=== PATIENT | male | born 1950 | race Caucasian/White ===

== ENCOUNTER 2017-08-27 06:49 | Day surgery (SDC) | payer MEDICARE ==
[~2017-08-27] VITALS: Ht 170.2 cm; Wt 89.5 kg
[~2017-08-27 06:49] MED LIST: CALCITRIOL PO; CEPHALEXIN500 M1 PO; COREG 25MG25 MG/TAB PO; DEXILANT60 MG PO; DIOVAN 40MG40 MG PO; LASIX 40MG TABL40 MG PO; RENVELA800 MG PO; TUMS EXTRA STR750 MG PO; VITAMIN D 400400 IU PO; ZOCOR 40MG40 MG PO; ZYLOPRIM 100MG100 MG PO
[2017-08-27 07:43] LABS: MEAN CELL VOLUME 95 fl (80.0-100.0); MEAN CORPUSCULAR HGB CONC 32 g/dl (33.0-37.0); MEAN PLATELET VOLUME 10.1 fl (7.4-10.4); PLATELET COUNT 121 K/mm3 (130-400); RED BLOOD COUNT 3.62 M/mm3 (4.20-5.60); REDCELL DISTRIBUTION WIDTH-CV 14.5 % (11.5-14.5)
[2017-08-27 07:44] VITALS: BP 126/83; PULSE 116; TEMP 97.5
[2017-08-27 07:45] LABS: HEMATOCRIT 34.3 % (42.0-52.0); HEMOGLOBIN 10.9 g/dl (13.5-18.0); MEAN CORPUSCULAR HEMOGLOBIN 30 pg (27.0-31.0)
[2017-08-27 07:49] LABS: PROTHROMBIN TIME 11.9 SECONDS (9.7-12.8)
[2017-08-27 07:52] LABS: CALCIUM 9.2 mg/dL (8.4-10.2); CREATININE, serum 2.85 mg/dL (0.66-1.25); POTASSIUM 4.5 mmol/L (3.4-5.0)
[2017-08-27] MEDS ORDERED: ELIQUIS 2.5 PO (08:12)
[2017-08-27] MEDS ORDERED: ZYLOPRIM 100MG100 MG PO (08:14)
[2017-08-27] MEDS ORDERED: NORVASC 5MG5 MG/TAB PO (08:15)
[2017-08-27] MEDS ORDERED: LASIX 40MG TABL40 MG PO (08:17)
[2017-08-27] MEDS ORDERED: ELIQUIS 5MG PO (08:31)
[2017-08-27 10:00] VITALS: BP 120/61; PULSE 81; TEMP 98
== END 2017-08-27 10:50 | disposition home or self-care (01) ==
LOC: COL.CAR 06:49
PROVIDERS: Internal Medicine Cardiovascular Disease
DX: I48.91 Unspecified atrial fibrillation (principal); I42.9 Cardiomyopathy, unspecified; I12.0 Hypertensive chronic kidney disease with stage 5 chronic kidney disease or end stage renal disease; N18.6 End stage renal disease; I15.0 Renovascular hypertension; E78.00 Pure hypercholesterolemia, unspecified; I25.10 Atherosclerotic heart disease of native coronary artery without angina pectoris; I08.0 Rheumatic disorders of both mitral and aortic valves; K21.9 Gastro-esophageal reflux disease without esophagitis; Z82.49 Family history of ischemic heart disease and other diseases of the circulatory system
CPT/HCPCS: J0330; J2704

== ENCOUNTER 2017-11-30 17:10 | Inpatient (IN) | payer MEDICARE ==
[~2017-11-30] VITALS: Ht 167.6 cm; Wt 79.1 kg
[~2017-11-30 17:10] MED LIST changes: +ELIQUIS 2.5 PO; +ELIQUIS 5MG PO; +NORVASC 5MG5 MG/TAB PO
[2017-11-30 18:25] VITALS: BP 120/66; PULSE 88; TEMP 98.2
[2017-11-30] MEDS ORDERED: ELIQUIS 5MG PO ×2 (18:47→18:48)
[2017-11-30] MEDS ORDERED: EPA FISH OIL1 SGL PO (18:50)
[2017-11-30 19:23] VITALS: BP 116/60; PULSE 85; TEMP 98.3
[2017-11-30 20:01] LABS: PARTIAL THROMBOPLASTIN TIME 41.3 SECONDS (26.0-37.0)
[2017-11-30] MEDS ORDERED: TUMS500 MG (22:06)
[2017-11-30 23:06] VITALS: BP 117/52; PULSE 82; TEMP 98.2
[2017-12-01 04:54] VITALS: BP 121/59; PULSE 76; TEMP 98.1
[2017-12-01 06:50] LABS: BASO % 0.3 % (0.0-2.0); EOS # 0.1 (0.0-0.7); EOS % 0.9 % (0-4.0); GRAN # 5.1 (1.4-6.5); GRAN % 79.7 % (42.2-75.2); LYMPH # 0.5 (1.2-3.4); LYMPH % 7.6 % (20.0-51.0); MEAN CELL VOLUME 94 fl (80.0-100.0); MEAN CORPUSCULAR HGB CONC 32 g/dl (33.0-37.0); MEAN PLATELET VOLUME 11.1 fl (7.4-10.4); MONO # 0.7 (0.1-0.6); MONO % 11.2 % (1.7-9.3); PLATELET COUNT 107 K/mm3 (130-400); RED BLOOD COUNT 3.25 M/mm3 (4.20-5.60); REDCELL DISTRIBUTION WIDTH-CV 13.9 % (11.5-14.5)
[2017-12-01 07:00] LABS: CALCIUM 9.1 mg/dL (8.4-10.2); CREATININE, serum 2.83 mg/dL (0.66-1.25); POTASSIUM 4.3 mmol/L (3.4-5.0)
[2017-12-01 07:03] LABS: HEMATOCRIT 30.6 % (42.0-52.0); HEMOGLOBIN 9.7 g/dl (13.5-18.0); MEAN CORPUSCULAR HEMOGLOBIN 30 pg (27.0-31.0)
[2017-12-01 07:04] VITALS: BP 135/55; PULSE 83; TEMP 98.2
[2017-12-01 11:44] VITALS: BP 130/79; PULSE 93; TEMP 98.4
[2017-12-01 15:18] VITALS: BP 125/61; PULSE 86; TEMP 98.4
[2017-12-01 15:54] LABS: ARTERIAL BLD GAS O2 SATURATION 92.9 % (92-100); ARTERIAL BLD GAS TCO2 CT 21.6; ARTERIAL BLOOD GAS BASE EXCESS -4.2 (-2-2); ARTERIAL BLOOD GAS HCO3 20.5 meq/L (22-26); ARTERIAL BLOOD GAS PCO2 36.1 mmHg (35-45); ARTERIAL BLOOD GAS PO2 70.1 mmHg (80-100); ARTERIAL BLOOD GAS pH 7.37 (7.35-7.45)
[2017-12-01 19:14] VITALS: BP 128/68; PULSE 82; TEMP 98.4
[2017-12-01 23:01] VITALS: BP 124/67; PULSE 82; TEMP 98.3
[2017-12-02] VITALS (9 sets, daily range): BP systolic 115–130; BP diastolic 50–63; PULSE 78–84; TEMP 98.1–99.7
[2017-12-02 06:40] LABS: BASO % 0.4 % (0.0-2.0); EOS # 0.2 (0.0-0.7); EOS % 2.3 % (0-4.0); GRAN # 5.8 (1.4-6.5); GRAN % 80.2 % (42.2-75.2); LYMPH # 0.5 (1.2-3.4); LYMPH % 6.4 % (20.0-51.0); MEAN CELL VOLUME 96 fl (80.0-100.0); MEAN CORPUSCULAR HGB CONC 31 g/dl (33.0-37.0); MEAN PLATELET VOLUME 10.9 fl (7.4-10.4); MONO # 0.7 (0.1-0.6); PLATELET COUNT 126 K/mm3 (130-400); RED BLOOD COUNT 3.17 M/mm3 (4.20-5.60); REDCELL DISTRIBUTION WIDTH-CV 14.1 % (11.5-14.5)
[2017-12-02 06:41] LABS: HEMATOCRIT 30.3 % (42.0-52.0); HEMOGLOBIN 9.5 g/dl (13.5-18.0); MEAN CORPUSCULAR HEMOGLOBIN 30 pg (27.0-31.0)
[2017-12-02 06:56] LABS: CREATININE, serum 2.54 mg/dL (0.66-1.25); POTASSIUM 4.1 mmol/L (3.4-5.0)
[2017-12-03] VITALS (11 sets, daily range): BP systolic 114–150; BP diastolic 53–72; PULSE 74–96; TEMP 98.5–99.8
[2017-12-03 06:52] LABS: CALCIUM 9.4 mg/dL (8.4-10.2); CREATININE, serum 2.44 mg/dL (0.66-1.25); POTASSIUM 3.7 mmol/L (3.4-5.0)
[2017-12-04 01:13] VITALS: BP 126/64; PULSE 77; TEMP 98.5
[2017-12-04 04:36] VITALS: BP 134/55; PULSE 73; TEMP 98.5
[2017-12-04 06:56] LABS: BASO % 0.4 % (0.0-2.0); EOS # 0.4 (0.0-0.7); EOS % 5.3 % (0-4.0); GRAN # 4.9 (1.4-6.5); GRAN % 73.1 % (42.2-75.2); LYMPH # 0.6 (1.2-3.4); LYMPH % 9.5 % (20.0-51.0); MEAN CELL VOLUME 94 fl (80.0-100.0); MEAN CORPUSCULAR HGB CONC 31 g/dl (33.0-37.0); MEAN PLATELET VOLUME 9.8 fl (7.4-10.4); MONO # 0.8 (0.1-0.6); MONO % 11.3 % (1.7-9.3); PLATELET COUNT 147 K/mm3 (130-400); RED BLOOD COUNT 3.32 M/mm3 (4.20-5.60); REDCELL DISTRIBUTION WIDTH-CV 13.8 % (11.5-14.5)
[2017-12-04 07:01] LABS: HEMATOCRIT 31.2 % (42.0-52.0); HEMOGLOBIN 9.8 g/dl (13.5-18.0); MEAN CORPUSCULAR HEMOGLOBIN 30 pg (27.0-31.0)
[2017-12-04 07:02] LABS: CALCIUM 9.3 mg/dL (8.4-10.2); CREATININE, serum 2.37 mg/dL (0.66-1.25); POTASSIUM 3.6 mmol/L (3.4-5.0)
[2017-12-04 08:11] VITALS: BP 116/48; PULSE 75; TEMP 97.8
[2017-12-04 13:14] VITALS: BP 115/51; PULSE 72; TEMP 97.7
[2017-12-04 16:07] VITALS: BP 113/53; PULSE 71; TEMP 98.7
[2017-12-04 20:40] VITALS: BP 123/56; PULSE 73; TEMP 99.2
[2017-12-05] VITALS (7 sets, daily range): BP systolic 90–132; BP diastolic 47–56; PULSE 69–82; TEMP 98.4–99.7
[2017-12-06 01:53] VITALS: BP 120/54; PULSE 78; TEMP 99.2
[2017-12-06 04:00] VITALS: TEMP 98.8
[2017-12-06 07:21] VITALS: BP 119/49; PULSE 71; TEMP 98.6
[2017-12-06] MEDS ORDERED: VENTOLIN0.09 MG IH (09:50)
== END 2017-12-06 13:06 | disposition home or self-care (01) | DRG 291 ==
LOC: MEDICAL 17:10
PROVIDERS: Nurse Practitioner; Physician Assistant
DX: I13.0 Hypertensive heart and chronic kidney disease with heart failure and stage 1 through stage 4 chronic kidney disease, or unspecified chronic kidney disease (principal); I50.23 Acute on chronic systolic (congestive) heart failure; J96.01 Acute respiratory failure with hypoxia; N18.9 Chronic kidney disease, unspecified; I48.91 Unspecified atrial fibrillation; Z95.0 Presence of cardiac pacemaker; Z79.01 Long term (current) use of anticoagulants; F79 Unspecified intellectual disabilities; Z95.5 Presence of coronary angioplasty implant and graft; I42.0 Dilated cardiomyopathy; I08.3 Combined rheumatic disorders of mitral, aortic and tricuspid valves; D63.1 Anemia in chronic kidney disease
CPT/HCPCS: 99222-AI; 99231-AI; 99232-AI; 99239; A9502; A9539; A9540; J1940; J2785; J7030

== ENCOUNTER 2018-07-15 14:20 | Inpatient (IN) | payer MEDICARE ==
[~2018-07-15] VITALS: Ht 170.2 cm; Wt 79.3 kg
[~2018-07-15 14:20] MED LIST changes: +EPA FISH OIL1 SGL PO; +TUMS500 MG; +VENTOLIN0.09 MG IH
[2018-07-15 14:56] LABS: BASO % 0.4 % (0.0-2.0); EOS # 0.2 (0.0-0.7); EOS % 3.9 % (0-4.0); GRAN # 3.6 (1.4-6.5); GRAN % 73.4 % (42.2-75.2); HEMATOCRIT 33.7 % (42.0-52.0); HEMOGLOBIN 10.3 g/dl (13.5-18.0); LYMPH # 0.5 (1.2-3.4); LYMPH % 10.1 % (20.0-51.0); MEAN CELL VOLUME 94 fl (80.0-100.0); MEAN CORPUSCULAR HEMOGLOBIN 29 pg (27.0-31.0); MEAN CORPUSCULAR HGB CONC 31 g/dl (33.0-37.0); MEAN PLATELET VOLUME 12.2 fl (7.4-10.4); MONO # 0.6 (0.1-0.6); PLATELET COUNT 83 K/mm3 (130-400); RED BLOOD COUNT 3.58 M/mm3 (4.20-5.60); REDCELL DISTRIBUTION WIDTH-CV 15.6 % (11.5-14.5)
[2018-07-15 15:04] LABS: INR 3.2 (0.8-3.0); PROTHROMBIN TIME 36.3 SECONDS (9.7-12.8)
[2018-07-15] MEDS ORDERED: ZOCOR 40MG40 MG PO (15:04)
[2018-07-15] MEDS ORDERED: LIPITOR20 MG PO (15:06)
[2018-07-15 15:07] LABS: PARTIAL THROMBOPLASTIN TIME 49.8 SECONDS (26.0-37.0)
[2018-07-15] MEDS ORDERED: PACERONE400 MG PO (15:07)
[2018-07-15] MEDS ORDERED: ZAROXOLYN5 MG PO (15:07)
[2018-07-15 15:15] LABS: ALBUMIN 3.7 gm/dL (3.5-5.0); BILIRUBIN,TOTAL 0.8 mg/dL (0.0-1.0); CALCIUM 9.9 mg/dL (8.4-10.2); POTASSIUM 3.7 mmol/L (3.4-5.0); TOTAL PROTEIN 6.2 gm/dL (6.4-8.2)
[2018-07-15 15:21] LABS: CREATININE, serum 4.8 mg/dL (0.66-1.25)
[2018-07-15 15:29] LABS: TROPONIN-I 0.04 ng/mL (0.000-0.035)
--- NOTE | 2018-07-15 20:00 | NUR ---
PT ADMITTED TO MEDICAL FLOOR. PT A&O X4. STATED HE HAS SOME STIFFNESS TO BACK BUT NO OTHER COMPLAINTS VOICED. BUMEX GTT RUNNING AT 10ML/HR WITHOUT ISSUE
[2018-07-15 21:19] VITALS: BP 76/43; PULSE 72; TEMP 91.7
--- NOTE | 2018-07-15 21:20 | NUR ---
THIS NURSE AND VENDING TECHNICIAN OBTAINED VITALS ON PT. B/P AT THIS TIME WAS 76/43 MANUALLY. TEMP WASNT ABLE TO BE OBTIANED WITH TYPICAL THERMOMETERS AND WITH THE DISPOABLE THERMOMETERS IT WAS 91.7.
--- NOTE | 2018-07-15 22:00 | NUR ---
THIS NURSE RETOOK VITALS AND B/P WAS UP TO 95/48, STILL UNABLE TO GET REGULAR THERMOMETERS TO WORK, TEMP WAS 92.1 AT THIS TIME. THIS NURSE CALLED LEESA MORSE DUE TO TEMP. INFORMED THIS NURSE TO TAKE TEMP RECTALLY.
[2018-07-15 22:01] VITALS: BP 95/48; TEMP 92.1
[2018-07-15 22:30] VITALS: TEMP 93.7
--- NOTE | 2018-07-15 22:30 | NUR ---
OBTAINED RECTAL TEMP OF 93.7. THIS NURSE HAD JAVIER RODRIGUEZ RETAKE RECTAL TEMP JUST TO SEE ENSURE TEMP WAS ACCURATE. SHE GOT 93.6 RECTALLY. NOTIFIED LEESA OF TEMP. HAD THIS NURSE WRAP PT IN WARM BLANKET AND KEEP MONITORING TEMP.
[2018-07-15 22:50] VITALS: TEMP 93.6
[2018-07-15 23:21] VITALS: BP 85/44; PULSE 106
[2018-07-16] VITALS (17 sets, daily range): BP systolic 82–93; BP diastolic 41–60; PULSE 74–116; TEMP 92.5–97.9
--- NOTE | 2018-07-16 03:20 | NUR ---
APPLIED FORCED AIR HEATING BLANKET TO PATIENT. WELL CONTINUE TO MONITOR PT
--- NOTE | 2018-07-16 04:58 | NUR ---
PT TEMP IS 94.9 WITH THE BEARHUGGER STILL ON AND ON LOW. B/P AT THIS TIME WAS 88/46.
--- NOTE | 2018-07-16 05:07 | NUR ---
NOTIFIED LEESA MORSE OF / WHILE ON BUMEX DRIP, LEESA SAID TO RECHECK B/P IN AN HOUR. NOTIFIED OF TEMP OF 94.9, THIS NURSE WAS INSTRUCTED TO TURN UP THE BIARHUGGER TO HIGH AND RECHECK TEMP IN AN HOUR WELL
--- NOTE | 2018-07-16 06:45 | NUR ---
PT HAD IV TO BILAT HANDS THIS AM, ONE WAS BLEEDING FROM DRESSING. IV HAD GONE BAD AND WAS REMOVED FROM HAND. HAD BLEEDING NOTED SO WRAPPED WITH COBAN AND ALLIED PRESSURE.
[2018-07-16 08:42] LABS: BASO % 0.3 % (0.0-2.0); EOS # 0.1 (0.0-0.7); EOS % 2.7 % (0-4.0); GRAN # 2.9 (1.4-6.5); GRAN % 77.2 % (42.2-75.2); LYMPH # 0.4 (1.2-3.4); LYMPH % 10.2 % (20.0-51.0); MEAN CELL VOLUME 92 fl (80.0-100.0); MEAN CORPUSCULAR HGB CONC 31 g/dl (33.0-37.0); MEAN PLATELET VOLUME 12.2 fl (7.4-10.4); MONO # 0.3 (0.1-0.6); MONO % 9.1 % (1.7-9.3); PLATELET COUNT 75 K/mm3 (130-400); RED BLOOD COUNT 3.42 M/mm3 (4.20-5.60); REDCELL DISTRIBUTION WIDTH-CV 15.5 % (11.5-14.5)
[2018-07-16 08:52] LABS: HEMATOCRIT 31.6 % (42.0-52.0); HEMOGLOBIN 9.7 g/dl (13.5-18.0); MEAN CORPUSCULAR HEMOGLOBIN 28 pg (27.0-31.0)
[2018-07-16 09:07] LABS: CALCIUM 9.9 mg/dL (8.4-10.2); MAGNESIUM 2.6 mg/dL (1.6-2.3); POTASSIUM 3.5 mmol/L (3.4-5.0)
--- NOTE | 2018-07-16 09:30 | NUR ---
SHIFT ASSESSMENT COMPLETED. PATIENT SITTING IN CHAIR UPON ENTRY AND REQUESTED BREAKFAST. PATIENT C/O PAIN IN MIDDLE OF ABDOMEN. DENIES SOB, PALPITATIONS, DIZZINESS, N/V, NUMBNESS OR TINGLING. RECTAL TEMPS ARE BEING TAKEN EVERY HOUR, TEMPS ARE INCREASING. DENIES BEING COLD BUT HAS CHILLS. BLE EDEMA +3, MINOR SCRATCHES ON RIGHT MAJANO, PATIENT STATES HE SCRATCHES LEG. LEFT AC BRUISING. IRREGULAR HEART RHYTHM. BUMEX GTT AND NS @ 30 MLS/HR IN RIGHT HAND. FISTULA PRESENT IN RIGHT THIGH, BRUIT AND THRILL PRESENT. PATIENT DENIES ANY OTHER NEEDS AT THIS TIME.
[2018-07-16 09:32] LABS: CREATININE, serum 4.78 mg/dL (0.66-1.25)
--- NOTE | 2018-07-16 10:17 | NUR ---
First visit from the volunteer services manager. No needs right now.
--- NOTE | 2018-07-16 10:32 | NUR ---
SW attended clinical rounds to discuss discharge planning. Patient lives at home with his sister. Patient's PCP is Dr Megan Velazco and he obtains prescriptions, without difficulty, from [facility] pharmacy. Patient does not use any home health services or DME at home. PT/OT will be consulted. Patient reports he does have a DPOA and those records are at home. SW will continue to follow and assist with discharge needs.
[2018-07-16 10:57] LABS: MUCOUS Present /lpf; PH 5 (5-8); SQUAMOUS EPITHELIAL 0-2 /hpf; URINE APPEARANCE Clear; URINE BACTERIA Rare /hpf; URINE BILIRUBIN Negative (NEGATIVE); URINE BLOOD 1+ (NEGATIVE); URINE COLOR Straw; URINE GLUCOSE Negative (NEGATIVE); URINE KETONE Negative (NEGATIVE); URINE LEUKOCYTE ESTERASE Negative (NEGATIVE); URINE NITRATE Negative (NEGATIVE); URINE PROTEIN(semi-quant) Negative (NEGATIVE); URINE RBC 0-2 /hpf; URINE UROBILINOGEN Negative (NEGATIVE)
--- NOTE | 2018-07-16 11:15 | NUR ---
patient down for CT.
--- NOTE | 2018-07-16 12:36 | NUR ---
patient back from CT, sitting in chair with blankets and bearhugger. Rectal temp taken, 97.0.
[2018-07-16 12:43] LABS: COLLECTION METHOD CLEAN CATCH
--- NOTE | 2018-07-16 15:08 | NUR ---
patient resting in chair, westley hugger has been removed. Past two temps have increased from earlier. 72 F and 72.7 F. patient denies needs at this time.
--- NOTE | 2018-07-16 17:53 | NUR ---
Patient is resting in chair, watching tv. Patients temps have increased throughout the day, last recorded temp 96.9 F, rectally. Blood pressures have been in 80s-90s. Micahel hugger was removed mid day due to increased temps. Patient worked with PT and walked down santizo, stated feeling fatigued after. Patient on 2L NC. Patient has done well throughout day with no complaints.
[2018-07-17] VITALS (10 sets, daily range): BP systolic 85–98; BP diastolic 46–67; PULSE 62–101; TEMP 97.6–98.4
--- NOTE | 2018-07-17 05:02 | NUR ---
PT HAD UNEVENTFUL NOC. VITALS REMAINED WNL OVER NOC. PT AWOKE APPROX 0400 WITH A BLOODY NOSE BRIEFLY, THIS NURSE APPLIED HUMIDIFIER ON 02 TUBING, PT WAS OFF O2 FOR A BRIEF TIME AND HAD DESATTED TO 87% REAPPLIED O2, WILL RECHECK SAT. BUMEX GTT INFUSING WITHOUT ISSUE. NO C/O PAIN OVER NOC. HAS REMAINED PLEASENT AND COOPERATIVE WITH CARES.
[2018-07-17 09:59] LABS: BASO % 0.4 % (0.0-2.0); EOS # 0.2 (0.0-0.7); EOS % 4.7 % (0-4.0); GRAN # 3.1 (1.4-6.5); HEMOGLOBIN 10.1 g/dl (13.5-18.0); LYMPH # 0.6 (1.2-3.4); LYMPH % 12.6 % (20.0-51.0); MEAN CELL VOLUME 93 fl (80.0-100.0); MEAN CORPUSCULAR HEMOGLOBIN 29 pg (27.0-31.0); MEAN CORPUSCULAR HGB CONC 31 g/dl (33.0-37.0); MEAN PLATELET VOLUME 12.7 fl (7.4-10.4); MONO # 0.6 (0.1-0.6); MONO % 12.6 % (1.7-9.3); PLATELET COUNT 85 K/mm3 (130-400); RED BLOOD COUNT 3.51 M/mm3 (4.20-5.60); REDCELL DISTRIBUTION WIDTH-CV 15.6 % (11.5-14.5)
[2018-07-17 10:03] LABS: ALBUMIN 3.7 gm/dL (3.5-5.0); BILIRUBIN,TOTAL 0.8 mg/dL (0.0-1.0); CALCIUM 10.1 mg/dL (8.4-10.2); POTASSIUM 3.2 mmol/L (3.4-5.0); TOTAL PROTEIN 6.2 gm/dL (6.4-8.2)
[2018-07-17 10:04] LABS: HEMATOCRIT 32.6 % (42.0-52.0)
[2018-07-17 10:08] LABS: INR 2.3 (0.8-3.0); PROTHROMBIN TIME 25.6 SECONDS (9.7-12.8)
[2018-07-17 10:38] LABS: CREATININE, serum 5.01 mg/dL (0.66-1.25)
--- NOTE | 2018-07-17 11:23 | NUR ---
Assessment completed, alert/oriented, vital signs stable, denies pain, reports breathing is easier today, lungs CTA/ dimnished, 3+ edema to BLE and patient reports this is baseline for him, Creat. up slightly from yesterday/ nephrology aware and making medication adjustments, heart RRR/ paced on tele with underlying A.fib, Bumex gtt continues at 5ml/hr, good urine ouput, he is sitting up in the chair and denies at this time
--- NOTE | 2018-07-17 21:47 | NUR ---
Pt sitting in recliner watching TV, no C/O pain at this time. Shift assessments complete, left Pt call light in reach.
[2018-07-18 04:24] VITALS: BP 77/45; PULSE 90; TEMP 97.3
--- NOTE | 2018-07-18 05:42 | NUR ---
Pt slept well during the night, no C/O pain, VS have remained stable.
[2018-07-18 07:15] VITALS: BP 101/61; PULSE 57; TEMP 98.1
--- NOTE | 2018-07-18 08:44 | NUR ---
Assessment completed, alert/oriented, vital signs are stable / he did have a significantly lower BP around 0430 that the night nurse did not recheck or report to the physician / as soon I noticed it I had the AEROPLANE PILOT recheck and notified hospitalist, patient denies any pain or discomfort, he continues to have good urine output, heart RRR/ 2-3+ edema still noted in the BLE, lungs CTA/ diminished, morning Labs pending, he is up in chair eating breakfast and denies needs
[2018-07-18 09:14] LABS: BASO % 0.5 % (0.0-2.0); EOS # 0.3 (0.0-0.7); EOS % 5.7 % (0-4.0); GRAN % 68.4 % (42.2-75.2); LYMPH # 0.5 (1.2-3.4); MEAN CELL VOLUME 92 fl (80.0-100.0); MEAN CORPUSCULAR HGB CONC 30 g/dl (33.0-37.0); MEAN PLATELET VOLUME 11.2 fl (7.4-10.4); MONO # 0.6 (0.1-0.6); MONO % 13.2 % (1.7-9.3); PLATELET COUNT 72 K/mm3 (130-400); RED BLOOD COUNT 3.42 M/mm3 (4.20-5.60); REDCELL DISTRIBUTION WIDTH-CV 15.4 % (11.5-14.5)
[2018-07-18 09:21] LABS: HEMATOCRIT 31.6 % (42.0-52.0); HEMOGLOBIN 9.6 g/dl (13.5-18.0); MEAN CORPUSCULAR HEMOGLOBIN 28 pg (27.0-31.0)
[2018-07-18 09:27] LABS: CALCIUM 9.8 mg/dL (8.4-10.2); POTASSIUM 3.3 mmol/L (3.4-5.0)
[2018-07-18 09:55] LABS: CREATININE, serum 4.73 mg/dL (0.66-1.25)
[2018-07-18 11:20] VITALS: BP 86/48; PULSE 69; TEMP 97.5
[2018-07-18 17:00] VITALS: BP 90/43; BP 90/48; PULSE 92; TEMP 97.9
--- NOTE | 2018-07-18 17:26 | NUR ---
I have again discussed with and the patients marginal Blood pressures, his MAP has been 60-65 and this is stable for now
[2018-07-18 20:52] VITALS: BP 90/46; PULSE 113; TEMP 97.7
--- NOTE | 2018-07-18 22:09 | NUR ---
Patient assessed at this time. Denies having pain and discomfort. Oxygen on at 2 L/min via NC. Denies having SOB and dyspnea. Bumex running into peripheral IV to right hand per orders. Site is without redness, warmth, swelling, and drainage. Fistual to right inner thigh has positive bruit and thrill, with strong pulse. 3+ edema to BLE. Pedal pulses present and equal bilaterally. Has been using bedside urinal. Denies having any questions or concerns at this time. Sitting up in recliner watching TV at this time. Call light is within reach.
[2018-07-19] VITALS (7 sets, daily range): BP systolic 86–96; BP diastolic 44–58; PULSE 78–92; TEMP 97.1–98.4
[2018-07-19 06:05] LABS: BASO % 0.2 % (0.0-2.0); EOS # 0.3 (0.0-0.7); EOS % 5.5 % (0-4.0); GRAN # 3.2 (1.4-6.5); GRAN % 69.4 % (42.2-75.2); LYMPH # 0.6 (1.2-3.4); LYMPH % 12.9 % (20.0-51.0); MEAN CELL VOLUME 91 fl (80.0-100.0); MEAN CORPUSCULAR HGB CONC 31 g/dl (33.0-37.0); MEAN PLATELET VOLUME 11.6 fl (7.4-10.4); MONO # 0.5 (0.1-0.6); MONO % 11.8 % (1.7-9.3); PLATELET COUNT 66 K/mm3 (130-400); RED BLOOD COUNT 3.33 M/mm3 (4.20-5.60); REDCELL DISTRIBUTION WIDTH-CV 15.4 % (11.5-14.5)
[2018-07-19 06:12] LABS: HEMATOCRIT 30.4 % (42.0-52.0); HEMOGLOBIN 9.4 g/dl (13.5-18.0); INR 1.7 (0.8-3.0); MEAN CORPUSCULAR HEMOGLOBIN 28 pg (27.0-31.0); PROTHROMBIN TIME 19.4 SECONDS (9.7-12.8)
--- NOTE | 2018-07-19 06:12 | NUR ---
Patient has denied having pain and discomfort throughout the night. Continues on Bumex drip per orders. Has been urinating in urinal independently, with staff measuring output and documenting. Denies having any questions or concerns at this time. This nurse attempted twice to start a new IV, once to right forearm, once to left forearm, but was unsuccessful. Resting in bed at this time. Call light is within reach.
[2018-07-19 06:29] LABS: CALCIUM 9.7 mg/dL (8.4-10.2); POTASSIUM 3.3 mmol/L (3.4-5.0)
[2018-07-19 06:45] LABS: CREATININE, serum 4.3 mg/dL (0.66-1.25)
[2018-07-19 13:06] LABS: IRON,SERUM 46 ug/dL (35-150)
[2018-07-19 13:11] LABS: TOTAL IRON BINDING CAPACITY 389 ug/dL (261-462)
[2018-07-19 13:38] LABS: FERRITIN 24 ng/mL (18-464)
--- NOTE | 2018-07-19 13:54 | NUR ---
Patient down to dialysis at 1330. Family is aware and will call jerry later this evening.
--- NOTE | 2018-07-19 19:37 | NUR ---
Patient assessed at this time. Denies having pain and discomfort. Voices no needs or concerns at this time. Heart reat irregular. Telemetry leads are intact. LS CTA. Peripheral IV to right hand patent, and without redness, warmth, swelling, and pain. Bumex running at 5 ml/hr per orders. Continues to use urinal. Urine is clear and yellow. Fistual to right inner thigh. Denies pain and discomfort to area. Had received dialysis today. Dressing to site is CDI at this time. Continues tohave 3+ edema to BLE. Pedal pulses present and equal bilaterally. BLE without redness, warmth, and pain. Multiple old scabs to BLE. All are open to air, and without open areas and drainge. Sitting in recliner watching TV at this time. Call light is within reach.
--- NOTE | 2018-07-20 01:55 | NUR ---
Denies having pain and discomfort. Continues on Bumex drip per orders. Resting in bed with eyes closed at this time. Continues to use urinal. Call light is within reach.
[2018-07-20 03:04] LABS: HEPATITIS B CORE AB,TOTAL Negative (()); HEPATITIS B SURFACE ANTIBODY <2.0 (()); HEPATITIS B SURFACE ANTIGEN Negative (Negative); HEPATITIS C VIRUS ANTIBODY Negative (Negative)
[2018-07-20 03:48] LABS: TRANSFERRIN 299 mg/dL (180-329)
[2018-07-20 04:20] VITALS: BP 90/51; PULSE 69; TEMP 98
--- NOTE | 2018-07-20 05:50 | NUR ---
Continues to deny pain and discomfort. Voices no questions or concerns at this time. Continues on Bumex drip at 5 ml/hr. Has been calling for assistance with using urinal or to empty urinal for him. On oxygen at 2 L/min via NC. Denies having SOB and dyspnea. Resting in bed with eyes closed at this time. Call light is within reach. Dialysis called and stated that they would call around 0830 for patient to go to dialysis.
--- NOTE | 2018-07-20 06:45 | NUR ---
Reported on to primary RN Kristin.
--- NOTE | 2018-07-20 07:00 | NUR ---
Received report, checked in on patient and he is observed laying on left side with eyes closed. Call light is within reach.
--- NOTE | 2018-07-20 07:00 | NUR ---
VSS. Assessment completed. IV site patent in R hand Bumex infusing @5mls/hr. Dressing CDI. Graft to R inner thigh. Dressing CDI. BLE edema 2+ pitting. Pedal pulses bilaterally audible by doppler. Pt up independently in room w/ steady gait. Denies c\o pain.
[2018-07-20 07:06] VITALS: BP 86/40; BP 97/45; PULSE 84; TEMP 98.7
[2018-07-20 07:08] LABS: CALCIUM 9.6 mg/dL (8.4-10.2); CREATININE, serum 3.84 mg/dL (0.66-1.25); MAGNESIUM 2.1 mg/dL (1.6-2.3)
[2018-07-20 07:10] LABS: POTASSIUM 2.9 mmol/L (3.4-5.0)
[2018-07-20 07:28] LABS: MEAN CELL VOLUME 91 fl (80.0-100.0); MEAN CORPUSCULAR HGB CONC 31 g/dl (33.0-37.0); MEAN PLATELET VOLUME 11.6 fl (7.4-10.4); REDCELL DISTRIBUTION WIDTH-CV 15.6 % (11.5-14.5)
[2018-07-20 07:54] LABS: HEMATOCRIT 30.1 % (42.0-52.0); HEMOGLOBIN 9.2 g/dl (13.5-18.0); MEAN CORPUSCULAR HEMOGLOBIN 28 pg (27.0-31.0)
[2018-07-20 07:55] LABS: PLATELET COUNT 49 K/mm3 (130-400)
--- NOTE | 2018-07-20 08:15 | NUR ---
Assisted pt. to dialysis after breakfast. AM care completed.
[2018-07-20 08:25] LABS: EOSINOPHIL 1 % (0-4); LYMPHOCYTE 11 % (20.0-51.0); NEUTROPHILS 79 % (42.0-75.2)
[2018-07-20 08:27] LABS: HYPOCHROMIA 2+; PLATELET ESTIMATE DECREASED (NORMAL); TARGET CELLS 1+
--- NOTE | 2018-07-20 11:00 | NUR ---
Pt. arrived on floor from dialysis. VSS. INT discontinued per DrRosanne orders. Tip intact w/minimal bleeding.
[2018-07-20 11:29] VITALS: BP 104/67; PULSE 97; TEMP 98.4
--- NOTE | 2018-07-20 11:47 | NUR ---
Reported off to Kristin RODRIGUEZ.
--- NOTE | 2018-07-20 13:06 | NUR ---
Order noted for nulecit 250 mg IV, this was administered during dialysis.
--- NOTE | 2018-07-20 16:03 | NUR ---
ROSA met with the patient to review discharge plan. The patient reports that he still plans to return home with his sister upon discharge. SW discussed home health services. The patient reports that he is not interested in services at this time. SW to continue to follow.
[2018-07-20 17:46] VITALS: BP 110/63; PULSE 106; TEMP 101
--- NOTE | 2018-07-20 18:17 | NUR ---
Patient noted to have elevated temperature, pt does not have any PRN available. Left message for Dr. Carmen for call back to notifiy of temp. No other complaints. Call light is within reach.
[2018-07-20 20:35] VITALS: BP 92/46; PULSE 108; TEMP 102.3
--- NOTE | 2018-07-20 20:53 | NUR ---
Pt resting in bed, no C/O pain at this time, shift assessments complete, left Pt call light in reach, bed in lowest position.
[2018-07-20 23:07] VITALS: BP 107/50; PULSE 79; TEMP 99.9
[2018-07-21 03:52] VITALS: BP 107/49; PULSE 90; TEMP 100.4
--- NOTE | 2018-07-21 05:30 | NUR ---
Pt slept well during the night, no C/O pain, VS have remained stable.
--- NOTE | 2018-07-21 07:00 | NUR ---
Report received from JENNIFER Packer. Pt in bed resting, denies needs, will continue to monitor.
[2018-07-21 07:20] VITALS: BP 94/45; PULSE 84; TEMP 99.9
--- NOTE | 2018-07-21 08:35 | NUR ---
Assessment charted. Pt in chair at side of bed resting after PT, states he is doing better ambulating. O2 at 2L NC with bubbler. IV to LH with bumex drip infusing at 5 ml/hr. Edema to BLE is 3+, elevated legs in recliner to help with edema. Pt has ordered breakfast, denies pain. R inner thigh A/V fistula, thrill and bruit present. Denies pain or other needs. Will continue to monitor.
[2018-07-21 10:34] LABS: MEAN CELL VOLUME 93 fl (80.0-100.0); MEAN CORPUSCULAR HGB CONC 31 g/dl (33.0-37.0); MEAN PLATELET VOLUME 12.9 fl (7.4-10.4); RED BLOOD COUNT 3.16 M/mm3 (4.20-5.60); REDCELL DISTRIBUTION WIDTH-CV 15.9 % (11.5-14.5)
[2018-07-21 10:41] LABS: ALBUMIN 3.5 gm/dL (3.5-5.0); CALCIUM 9.6 mg/dL (8.4-10.2); CREATININE, serum 3.5 mg/dL (0.66-1.25); POTASSIUM 3.1 mmol/L (3.4-5.0)
[2018-07-21 10:42] LABS: HEMATOCRIT 29.3 % (42.0-52.0); MEAN CORPUSCULAR HEMOGLOBIN 28 pg (27.0-31.0)
[2018-07-21 10:43] LABS: PLATELET COUNT 40 K/mm3 (130-400)
[2018-07-21 10:44] VITALS: BP 91/43; PULSE 85; TEMP 101
[2018-07-21 11:14] LABS: BAND 20 % (0-10); HYPOCHROMIA 2+; LYMPHOCYTE 4 % (20.0-51.0); NEUTROPHILS 70 % (42.0-75.2); PLATELET ESTIMATE DECREASED (NORMAL)
--- NOTE | 2018-07-21 16:20 | NUR ---
ROSA received a referral from PT recommending that the patient have a front wheeled walker and would benefit from either home health or outpatient therapy. ROSA and ROSA student then met with the patient's sister to discuss these recommendations. The patient was down in dialysis. The patient's sister reports that the patient would benefit from a walker and that they would prefer outpatient therapy at [facility]. ROSA discussed DME options and presented and explained the patient choice form for DME. The patient's sister reports that the patient receives his home oxygen from [facility] and that they would prefer to receive the walker from them. Patient choice form was signed by the patient's sister and she was provided a copy. ROSA will need to fax the patient's walker order to [facility] when it gets closer to discharge. ROSA to also inform the dip unit operator of the patients preferred outpatient therapy center, [facility]. ROSA to continue to follow.
[2018-07-21 17:47] LABS: COLLECTION METHOD CLEAN CATCH
[2018-07-21 18:00] LABS: AMORPHOUS CRYSTAL Present /uL; PH 5 (5-8); SQUAMOUS EPITHELIAL None Seen /hpf; URINE APPEARANCE Cloudy; URINE BACTERIA None Seen /hpf; URINE BILIRUBIN Negative (NEGATIVE); URINE BLOOD 1+ (NEGATIVE); URINE COLOR Yellow; URINE GLUCOSE Negative (NEGATIVE); URINE KETONE Negative (NEGATIVE); URINE LEUKOCYTE ESTERASE Negative (NEGATIVE); URINE NITRATE Negative (NEGATIVE); URINE PROTEIN(semi-quant) 2+ (NEGATIVE); URINE RBC 0-2 /hpf; URINE WBC 0-2 /hpf
--- NOTE | 2018-07-21 18:03 | NUR ---
Pt went down for dialysis and came back at 1745, R inner thigh access site has scant drainage but per report from Dialysis nurse pressure had to be held on site for 25 minutes. Family was here earlier but pt was in dialysis. denies pain. Wants to take a shower after eats supper. Will give bedside shift report to nightshift nurse who will resume care.
--- NOTE | 2018-07-21 19:34 | NUR ---
Patient assessed at this time. Denies having pain and discomfort. Peripheral INT to left hand flushed with 5 ml NS. Site is patent, and without redness, warmth, swelling, and pain. Multiple bruises in various stages of healing to BUE. Dialysis site to right inner thigh has purple bruising. Pressure dressing to site is CDI. Denies having pain and discomfort to area. 3+ edema continues to BLE. Pedal pulses present and equal bilaterally. Has been using urinal and calling for assistance to go to the bathroom. Urine is clear and yellow. Wearing oxygen at 2 L/min via NC. Denies having SOB and dysnpea. Voices no needs or concerns at this time. Sitting up in bed watching TV at this time. Call light is within reach.
[2018-07-22 01:20] VITALS: BP 90/47; PULSE 87; TEMP 99.1
--- NOTE | 2018-07-22 02:47 | NUR ---
Resting in bed with eyes closed. Continues to wear oxygen at 2 L/min via NC. Has denied having pain and discomfort throughout the night. Call light is within reach.
[2018-07-22 05:32] VITALS: BP 110/39; BP 87/41; PULSE 102; PULSE 37; TEMP 98.3; TEMP 99.3
--- NOTE | 2018-07-22 06:12 | NUR ---
Denies having pain and discomfort at this time. Voices no needs or concerns. Continues to wear oxygen at 2 L/min via NC. Resting in bed with eyes closed at this time. Call light is within reach.
[2018-07-22 07:40] LABS: BASO % 0.3 % (0.0-2.0); EOS # 0.1 (0.0-0.7); GRAN # 4.4 (1.4-6.5); GRAN % 75.1 % (42.2-75.2); LYMPH # 0.5 (1.2-3.4); LYMPH % 7.8 % (20.0-51.0); MEAN CELL VOLUME 93 fl (80.0-100.0); MEAN CORPUSCULAR HGB CONC 31 g/dl (33.0-37.0); MEAN PLATELET VOLUME 13.9 fl (7.4-10.4); MONO # 0.8 (0.1-0.6); MONO % 14.1 % (1.7-9.3)
[2018-07-22 07:44] LABS: HEMATOCRIT 27.9 % (42.0-52.0); HEMOGLOBIN 8.5 g/dl (13.5-18.0); MEAN CORPUSCULAR HEMOGLOBIN 28 pg (27.0-31.0)
[2018-07-22 07:46] LABS: PLATELET COUNT 42 K/mm3 (130-400)
[2018-07-22 07:48] LABS: ALBUMIN 3.2 gm/dL (3.5-5.0); CALCIUM 9.1 mg/dL (8.4-10.2); CREATININE, serum 2.53 mg/dL (0.66-1.25); PHOSPHOROUS 3.2 mg/dL (2.5-4.5); POTASSIUM 3.4 mmol/L (3.4-5.0)
--- NOTE | 2018-07-22 08:35 | NUR ---
Pt sitting in chair, denies any pain. Breathing even and unlabored. Completed morning assessmment. Pt bilateral lower legs has +3 pitting edema. Pt denies any needs, call light in reach.
[2018-07-22 12:17] VITALS: BP 106/66; PULSE 114; TEMP 101.9
[2018-07-22 15:49] VITALS: BP 103/55; PULSE 47; TEMP 102.8
--- NOTE | 2018-07-22 16:20 | NUR ---
Check pts temp, 103.[address] for order of tylenol.
--- NOTE | 2018-07-22 18:15 | NUR ---
Pt lying in bed, ultrasound procedure being completed.
[2018-07-22 19:08] VITALS: BP 95/50; PULSE 80; TEMP 101.4
--- NOTE | 2018-07-22 20:11 | NUR ---
PT RESTING IN CHAIR. A+OX4. no pain. fistula bruised, bruit and thill noted. no soa reported, on 2L via NC. no needs at this time. call light in reach
[2018-07-22 23:23] VITALS: BP 90/44; PULSE 100; TEMP 100.3
[2018-07-23] VITALS (15 sets, daily range): BP systolic 95–122; BP diastolic 57–81; PULSE 95–140; TEMP 98.7–102.8; O2SAT 30–100
--- NOTE | 2018-07-23 01:37 | NUR ---
pt resting in bed. reports no pain. pt on 2L via NC. pt reports 2L at night being his baseline. 100.3 temp, tylenol given. no needs at this time. call light in reach.
--- NOTE | 2018-07-23 04:17 | NUR ---
pt reports a sharp pain in the right inner calf. this nurse assessed- white pea size sore at site. no needs at this time. call light in reach
--- NOTE | 2018-07-23 05:13 | NUR ---
pt resting off and on throughout night. reports some pain on sore on right inner lower calf. pt sitting in chair at this time. no needs. call light in reach
[2018-07-23 06:05] LABS: BASO % 0.1 % (0.0-2.0); EOS % 0.4 % (0-4.0); GRAN # 6.7 (1.4-6.5); GRAN % 83.7 % (42.2-75.2); LYMPH # 0.4 (1.2-3.4); LYMPH % 5.1 % (20.0-51.0); MEAN CELL VOLUME 93 fl (80.0-100.0); MEAN CORPUSCULAR HGB CONC 30 g/dl (33.0-37.0); MONO # 0.8 (0.1-0.6); REDCELL DISTRIBUTION WIDTH-CV 16.3 % (11.5-14.5)
[2018-07-23 06:06] LABS: HEMATOCRIT 30.8 % (42.0-52.0); HEMOGLOBIN 9.2 g/dl (13.5-18.0); MEAN CORPUSCULAR HEMOGLOBIN 28 pg (27.0-31.0)
[2018-07-23 06:08] LABS: PLATELET COUNT 47 K/mm3 (130-400)
[2018-07-23 06:12] LABS: ALBUMIN 3.7 gm/dL (3.5-5.0); CALCIUM 9.9 mg/dL (8.4-10.2); CREATININE, serum 3.44 mg/dL (0.66-1.25); PHOSPHOROUS 3.2 mg/dL (2.5-4.5); POTASSIUM 3.5 mmol/L (3.4-5.0)
--- NOTE | 2018-07-23 06:56 | NUR ---
report given to JENNIFER Plaza
--- NOTE | 2018-07-23 09:34 | NUR ---
Pt sitting up in chair with legs down, helped pt put legs up and encouraged him to keep them up. Applied bandage to small red weeping area on lower right leg. Pt right leg is red, no warmth noted, slightly more swollen than left leg. pt is still complaininng of the spot hurting 10 on scale 0-10.
--- NOTE | 2018-07-23 11:30 | NUR ---
PT TAKEN TO DIALYSIS VIA WHEELCHAIR
--- NOTE | 2018-07-23 12:19 | NUR ---
DIALYSIS NURSE CALLED AND REPORTED PT HAS TEMP OF 102.7 AND HR 130. SHE CONTACTED DR. IZQUIERDO AND RECEIVED ORDERS. WILL FOLLOW UP.
--- NOTE | 2018-07-23 14:30 | NUR ---
Patient not feeling well at this time spiked a fever during dialysis, with hr in 130's, Dialysis nurse states paient can barely sit up. Unable to perform CPFT at this time Meredith RODRIGUEZ with Dr Villanueva notified will follow up with patient on thursday to try again if patient is still here. OK for patient to have CPFT as an outpatient if patient discharges prior to CPFT being done. Mela RODRIGUEZ notified.
--- NOTE | 2018-07-23 16:01 | NUR ---
ROSA met with the patient to discuss physical therapies recommendation of outpatient PT vs home health and the need for a walker. ROSA informed his of what his sister, Gillian, would think he would like. The patient reports that he would like to receive outpatient PT at [facility] and that he would want a walker. ROSA then contacted Wilfred at [facility] to scedule an appointment. Wilfred reports that they prefer for the patient to get a script from the doctor and that they would then schedule the appointment with the patient. ROSA to inform the patient and patient's sister and continue to follow. ROSA will also need to order the patient's walker closer to discharge.
--- NOTE | 2018-07-23 18:30 | NUR ---
PT'S IV TO LEFT HAND NOT FLUSHING. 20G IV INSERTED TO RIGHT AC.
--- NOTE | 2018-07-23 18:40 | NUR ---
PT BROUGHT OVER FROM CT SCAN VIA WHEELCHAIR BY ELMIRA PERSONAL CAREGIVER. PT AWAKE, ALERT AND ORIENTED.
--- NOTE | 2018-07-23 18:40 | NUR ---
REPORT GIVEN TO CECILIA RODRIGUEZ. LET CECILIA KNOW AMIORDARONE AND ZOSYN HAD NOT BEEN GIVEN. PT TAKEN TO CAT SCAN AND WILL BE TAKEN TO ICU RM 2 AFTER.
--- NOTE | 2018-07-23 20:30 | NUR ---
PT LAYING QUIETLY IN BED. PT ANSWERS SOME, BUT NOT ALL QUESTION APPROPRIATELY; UNABLE TO ANSWER MONTH, BUT CAN ANSWER YEAR. IT WAS MENTIONED IN REPORT HAS MILD MR. PT IS WEAK ON ASSESSMENT AND DENIES PAIN. AT SHIFT CHANGE A CENTRAL LINE WAS ORDERED AND IT WAS TO BE CONDUCTED BY . CONSENT SIGNED. AND WERE IN THE PT'S ROOM AND DISCUSSED THE ISSUE OF PT HAVING LOW PLATELET COUNT AND DUE TO THE POSITION OF THE VESSELS AND RISK OF THE PT BLEEDING, IT WAS DECIDED TO NOT PROCEED WITH CENTRAL LINE. ORDERED TO PROCEED WITH ATTEMPTING ANOTHER PERIPHERAL LINE.
[2018-07-23 20:56] LABS: ARTERIAL BLD GAS TCO2 CT 26.5; ARTERIAL BLOOD GAS BASE EXCESS 0.2 (-2-2); ARTERIAL BLOOD GAS HCO3 25.2 meq/L (22-26); ARTERIAL BLOOD GAS PCO2 42.7 mmHg (35-45); ARTERIAL BLOOD GAS PO2 70.6 mmHg (80-100); ARTERIAL BLOOD GAS pH 7.39 (7.35-7.45)
--- NOTE | 2018-07-23 23:32 | NUR ---
2235: CONTACTED BY TELE REGARDING LOW BP. IMMEDIATELY LEFT DIFF PT ROOM TO CHECK ON PT. 2236: CONTACTED HOSPITALIST REGARDING LOW BP WHILE RECYCLING BP. HOSPITALIST STATED THEY WERE NOT TRACKING THE PT. 2237: CONTACTED EICU REGARDING PT STATUS AND LOW BP. ASKING FOR RECOMMENDATIONS. INFORMED PT ONLY HAS TWO PERIPHERAL SITES. PT ALERT, DENIES PAIN, FOLLOWS COMMANDS. 2245: EICU ORDERS TO TITRATE VASOPRESSIN FROM 0.03MCG/KG/MIN TO 0.04MCG/KG/MIN. 2246: RT CONTACTED. PT SPO2 PROBE NOT READING. REQUESTING PEDIATRIC AND/OR FOREHEAD PROBE DUE TO PERIPHERAL CIRCULATION LIKELY DECREASED CAUSING POOR READING. PT NC INCREASED TO 6L TEMPORARILY UNTIL OXYMASK IS AVAILABLE. PT BP REMAINS LOW. EICU CORNEL CHECKS IN VIA VIDEO. 2255: INSTRUCTED BY EICU TO INTIATE LEVOPHED DUE TO PT CRITICALLY HYPOTENSIVE. ADDITIONALLY, 1L NS BOLUS TO BE ADMINISTERED. 2300: PT ON 10L OXYMASK. 2305: INITIATING LEVOPHED START, INFORMED BY AD SETTER ASHLEY, WHO HAD BEEN IN CONTACT WITH , DO NOT START LEVOPHED PER HIS ORDERS, BUT PROCEED WITH NS, BUT AT LOWER RATE. 2306: RT CONTACTED. 2315: PT NOT VERBALLY RESPONDING. ASKED PT TO FOLLOW MY FINGER AND PARTIALLY FOLLOWED. EICU IMMEDIATELY CONTACTED. 2317: ON VIDEO, BUT UNABLE TO COMPREHEND PHYSICIAN DUE TO POOR CONNECTION. 2319: FROM EICU CALLS ON PHONE. 2330: INITIATE LEVOPHED PER 2332: TOD
--- NOTE | 2018-07-23 23:35 | NUR ---
[facility] notified that patient has ; apical pulse cannot be auscultated and no femoral pulse palpated. Verified by two nurses.
== END 2018-07-24 04:00 | disposition expired | DRG 291 ==
LOC: COL.ER 14:20 → MEDICAL 15:38 → ICU 07-23 19:32
PROVIDERS: Emergency Medicine; Hospitalist; Internal Medicine Pulmonary Disease; Physician Assistant; ADMIT Internal Medicine Nephrology
PROC: 5A1D70Z Performance of Urinary Filtration, Intermittent, Less than 6 Hours Per Day (ICD-10-PCS; principal; 2018-07-19)
PROC: 5A1D70Z Performance of Urinary Filtration, Intermittent, Less than 6 Hours Per Day (ICD-10-PCS; 2018-07-20)
PROC: 5A1D70Z Performance of Urinary Filtration, Intermittent, Less than 6 Hours Per Day (ICD-10-PCS; 2018-07-21)
PROC: 5A1D70Z Performance of Urinary Filtration, Intermittent, Less than 6 Hours Per Day (ICD-10-PCS; 2018-07-23)
DX: I13.2 Hypertensive heart and chronic kidney disease with heart failure and with stage 5 chronic kidney disease, or end stage renal disease (principal); I50.33 Acute on chronic diastolic (congestive) heart failure; J18.1 Lobar pneumonia, unspecified organism; N18.6 End stage renal disease; N17.9 Acute kidney failure, unspecified; Z66 Do not resuscitate; I25.10 Atherosclerotic heart disease of native coronary artery without angina pectoris; I48.91 Unspecified atrial fibrillation; Z95.5 Presence of coronary angioplasty implant and graft; Z79.01 Long term (current) use of anticoagulants; Z95.0 Presence of cardiac pacemaker; F79 Unspecified intellectual disabilities; I42.0 Dilated cardiomyopathy; D63.1 Anemia in chronic kidney disease; I08.1 Rheumatic disorders of both mitral and tricuspid valves; D69.6 Thrombocytopenia, unspecified; R68.0 Hypothermia, not associated with low environmental temperature; I95.9 Hypotension, unspecified; E87.6 Hypokalemia
CPT/HCPCS: 99223-AI; 99233-AI; J0882; J1644; J1956; J2543; J3370; J7030; J7040; J7050; J7060